=== PATIENT | male | born 1965 | race Caucasian/White ===

== ENCOUNTER 2016-07-01 08:57 | Day surgery (SDC) | payer OTHER ==
[~2016-07-01] VITALS: Ht 170.2 cm; Wt 89.4 kg
[~2016-07-01 08:57] MED LIST: PROAIR HFA IN; RANITIDINE75 M1 PO; TRAMADOL HYDROC50 MG PO; ZESTRIL10 M1 PO; [UNRECOGNIZED DRUG - OTHER]
[2016-07-01 15:18] VITALS: BP 111/62
== END 2016-07-01 15:17 | disposition home or self-care (01) | DRG 392 ==
LOC: ENDO 08:57
PROVIDERS: ATTEND Internal Medicine Gastroenterology
PROC: 0DB48ZX Excision of Esophagogastric Junction, Via Natural or Artificial Opening Endoscopic, Diagnostic (ICD-10-PCS; principal; 2016-07-01)
PROC: 0DB98ZX Excision of Duodenum, Via Natural or Artificial Opening Endoscopic, Diagnostic (ICD-10-PCS; 2016-07-01)
PROC: 0DBE8ZX Excision of Large Intestine, Via Natural or Artificial Opening Endoscopic, Diagnostic (ICD-10-PCS; 2016-07-01)
PROC: 0DBN8ZX Excision of Sigmoid Colon, Via Natural or Artificial Opening Endoscopic, Diagnostic (ICD-10-PCS; 2016-07-01)
PROC: 0DBL8ZX Excision of Transverse Colon, Via Natural or Artificial Opening Endoscopic, Diagnostic (ICD-10-PCS; 2016-07-01)
DX: R19.7 Diarrhea, unspecified (principal); I10 Essential (primary) hypertension; R10.32 Left lower quadrant pain; K21.0 Gastro-esophageal reflux disease with esophagitis; K29.70 Gastritis, unspecified, without bleeding; K44.9 Diaphragmatic hernia without obstruction or gangrene; K64.4 Residual hemorrhoidal skin tags; K64.8 Other hemorrhoids; D12.3 Benign neoplasm of transverse colon; K63.5 Polyp of colon